=== PATIENT | male | born 2000 | race Caucasian/White ===

== ENCOUNTER 2020-12-26 16:17 | Emergency (ER) | payer MEDICAID ==
[2020-12-26] MEDS ORDERED: LIDOCAINE-MPF 2% 5 ML VIAL SUBQ STA (16:35)
[2020-12-26] MEDS ORDERED: TETANUS/DIPHTHERIA/PERTUSSIS 0.5 ML SYRINGE IM ONE (16:36)
--- NOTE | 2020-12-26 16:36 | ED Physician Documentation ---
PD HPI UPPER EXT INJURY - Stated complaint Stated Complaint: LT HAND INJ - Chief complaint Chief Complaint: Laceration - History obtained from History obtained from: Patient - History of Present Illness Location: Left Type of injury: Blunt / blow Timing - duration: Minutes (30) Timing - details: Abrupt onset Pain level max: 5 Pain level now: 4 Improved by: Rest Worsened by: Moving, Palpating Associated symptoms: No: Weakness, Numbness, Tingling, Swelling - Additonal information Additional information: Patient is a 20-year-old male who presents to the emergency department with a left fifth digit injury. He states that he was hammering something with the back end of an ax and accidentally hit his finger. Worse with movement, better with rest. He thinks his last tetanus shot was about 10 years ago. Patient is right-handed. Review of Systems Constitutional: denies: Fever, Chills GI: denies: Vomiting Neurologic: denies: Head injury PD PAST MEDICAL HISTORY - Past Medical History Past Medical History: No - Past Surgical History Past Surgical History: No - Present Medications Home Medications: Ambulatory Orders Medication Instructions Recorded Confirmed Citalopram [CeleXA] 30 mg PO DAILY 12/26/20 12/26/20 Ibuprofen [Motrin] 800 mg PO Q8H PRN #30 tablet 12/26/20 cephALEXin [Keflex] 500 mg PO Q6H #20 cap 12/26/20 - Allergies Allergies/Adverse Reactions: Allergies Allergy/AdvReac Type Severity Reaction Status Date / Time camphor [From Vicks Vaporub] Allergy Rash Verified 12/26/20 16:28 eucalyptus Allergy Rash Verified 12/26/20 16:28 [From Vicks Vaporub] menthol [From Vicks Vaporub] Allergy Rash Verified 12/26/20 16:28 petrolatum,white Allergy Rash Verified 12/26/20 16:28 [From Vicks Vaporub] turpentine oil Allergy Rash Verified 12/26/20 16:28 [From Vicks Vaporub] - Living Situation Living Arrangement: reports: At home - Family History Family history: reports: Non contributory - Immunizations Immunizations are current?: No PD ED PE NORMAL - Vitals Vital signs reviewed: Yes - General General: Alert and oriented X 3, No acute distress - HEENT HEENT: Moist mucous membranes - Neck Neck: Supple, no meningeal sign - Cardiac Cardiac: RRR - Respiratory Respiratory: No respiratory distress, Clear bilaterally - Derm Derm: Warm and dry - Extremities Extremities: Other (TTP L 5th digit distal aspect. There is a 1.3 cm laceration, distal aspect, lateral. There are skin avulsions as well. No nail injury. Neurovascular intact. The laceration is stellate and flapped) - Neuro Neuro: Alert and oriented X 3 Results - Vitals Vitals: Vital Signs - 24 hr 12/26/20 12/26/20 16:18 17:37 Temperature 37 C 37.4 C Heart Rate 72 68 Respiratory 16 16 Rate Blood Pressure 135/71 H 143/73 H O2 Saturation 100 100 Oxygen O2 Source Room air - Rads (name of study) L 5th digit xray Radiology: Final report received, EMP read contemporaneously, See rad report (Comminuted and displaced fifth distal phalangeal tuft fracture as above. Laceration involving tip of the fifth digit with possible 2 tiny foreign bodies as above. ) Procedures - Laceration (location) L 5th digit Length in cm: 1.3 Wound type: Stellate, Irregular, Flap, Into subcut fat Neurovascular status: Sensory intact, Motor intact, Vascular intact Tendon involvement: Tendon intact Anesthesia: Lidocaine 2% (digitial block) Wound preparation: Irrigated copiously NS, Wound explored, To the base Skin layer closure: Nylon, Interrupted, Size #-0 - enter number (4), Sutures - enter # (4) Other: Patient tolerated well, No complications, Neurovascular intact, Dressing applied, Tetanus UTD PD MEDICAL DECISION MAKING - ED course Complexity details: reviewed results, re-evaluated patient, considered differential, d/w patient ED course: 20-year-old male with a crush injury to the distal aspect of the left fifth digit. Laceration repaired. Tolerated well. There are some avulsions of skin, he will have scarring. Tdap given. Will place on antibiotics for home. Patient also has a small distal tuft fracture. Patient counseled regarding signs and symptoms for which I believe and urgent re-evaluation would be necessary. Patient with good understanding of and agreement to plan and is comfortable going home at this time This document was made in part using voice recognition software. While efforts are made to proofread this document, sound alike and grammatical errors may occur. Departure - Departure Disposition: 01 Home, Self Care Clinical Impression: Finger laceration Qualifiers: Encounter type: initial encounter Finger: little finger Damage to nail status: without damage Foreign body presence: without foreign body Laterality: left Qualified Code(s): S61.217A - Laceration without foreign body of left little finger without damage to nail, initial encounter Finger fracture Qualifiers: Encounter type: initial encounter Finger: little finger Fracture type: open Phalanx: distal Fracture alignment: displaced Laterality: left Qualified Code(s): S62.637B - Displaced fracture of distal phalanx of left little finger, initial encounter for open fracture Condition: Good Instructions: ED Fx Finger Open, ED Laceration Hand Follow-Up: your,doctor in about 10 days for suture removal [Other] Prescriptions: cephALEXin [Keflex] 500 mg PO Q6H #20 cap Ibuprofen [Motrin] 800 mg PO Q8H PRN #30 tablet PRN Reason: PAIN &/OR FEVER Comments: Your prescriptions were sent to [facility] in [place]. The fracture should heal without any difficulty. Take all antibiotics until gone. Keep the wound clean. Sutures should be removed in about 10 to 14 days either here, with your doctor or you can go to the walk-in clinic on [facility]. Return for redness, swelling or drainage from the wound. Discharge Date/Time: 12/26/20 17:40
--- NOTE | 2020-12-26 17:01 | XRAY Report ---
PROCEDURE: Finger(s) LT INDICATIONS: Trauma TECHNIQUE: AP hand, 2 views of the fifth finger(s) acquired. COMPARISON: None FINDINGS: Bones: Comminuted fracture involving dorsal and ulnar aspect of fifth distal phalangeal tuft is seen with laterally displaced fracture fragment. No suspicious bony lesions. Soft tissues: Laceration and soft tissue defect over ulnar aspect of distal fifth digit is seen with suggestion of 2 linear foreign bodies within the site of laceration. IMPRESSION: Comminuted and displaced fifth distal phalangeal tuft fracture as above. Laceration involving tip of the fifth digit with possible 2 tiny foreign bodies as above. Reviewed by: Ten Canales MD on 12/26/2020 5:00 PM PDT Approved by: Ten Canales MD on 12/26/2020 5:00 PM PDT Station ID: [id number]
[2020-12-26] MEDS ORDERED: cephALEXin 250 MG CAPSULE PO STA (17:16)
[2020-12-26 17:37] VITALS: BP 143/73
== END 2020-12-26 17:40 | disposition home or self-care (01) ==
LOC: ED 16:17
DX: S62.637B Displaced fracture of distal phalanx of left little finger, initial encounter for open fracture (principal); S61.217A Laceration without foreign body of left little finger without damage to nail, initial encounter; W22.8XXA Striking against or struck by other objects, initial encounter; Y93.89 Activity, other specified; Z23 Encounter for immunization
CPT/HCPCS: 12001; 73140; 90471; 90715; 99283; 99284; A9270